=== PATIENT | female | born 1950 | race Caucasian/White ===

== ENCOUNTER 2016-12-02 09:10 | Day surgery (SDC) | payer MEDICARE, OTHER ==
--- NOTE | ~2016-12-02 | EGD ---
EGD REPORT [facility] [address] [place]. [address] NAME: ARTURO ESQUIVEL JANUARY : [birth year] STATUS : REG [facility] PAT#: [id number] AGE: 66 ADM/REG DATE : 12/02/16 MR#: [id number] REPORT SERV DATE: 12/02/16 DICTATED BY: GABRIELA MARTINEZ DATE: 12/02/16 REPORT STATUS : Draft TRANSCRIBED BY: [facility] DATE: 12/02/16 Endoscopy Center Patient Name: Arturo Esquivel January Date of : 1950 Attending MD: GABRIELA MARTINEZ MD Procedure Date No Time: 12/02/2016 Procedure: Colonoscopy Indications: This is the patient's first colonoscopy, Heme positive stool, Iron deficiency anemia Referring MD: LUBNA EDMOND Medicines: See the Anesthesia note for documentation of the administered medications Complications: No immediate complications. Procedure: Pre-Anesthesia Assessment: - ASA Grade Assessment: IV - A patient with severe systemic disease that is a constant threat to life. After I obtained informed consent, the scope was passed under direct vision. Throughout the procedure, the patient's blood pressure, pulse, and oxygen saturations were monitored continuously. The PCF H190L [id number] was introduced through the anus and advanced to the terminal ileum, with identification of the appendiceal orifice and IC valve. The colonoscopy was performed without difficulty. The patient tolerated the procedure well. The quality of the bowel preparation was adequate. Findings: The perianal and digital rectal examinations were normal. Diverticula were found in the ascending colon. Internal hemorrhoids were found during retroflexion and were small. Two sessile polyps were found in the descending colon. The polyps were 10 mm in size. These polyps were removed with a hot snare. Resection and retrieval were complete. Two sessile polyps were found in the ascending colon. The polyps were 10 mm in size. These polyps were removed with a hot snare. Resection and retrieval were complete. A sessile polyp was found in the ascending colon. The polyp was small in size. The polyp was removed with a cold biopsy forceps. Resection was complete, but the polyp tissue was not retrieved. Impression: - Diverticulosis in the ascending colon. - Internal hemorrhoids. - Two 10 mm polyps in the descending colon. Resected and retrieved. - Two 10 mm polyps in the ascending colon. Resected and EGD REPORT [place] [id number] [facility] [place]. [address] NAME: ARTURO ESQUIVEL JANUARY : [birth year] STATUS : REG [facility]#: [id number] AGE: 66 ADM/REG DATE : 12/02/16 MR#: [id number] REPORT SERV DATE: 12/02/16 DICTATED BY: GABRIELA MARTINEZ DATE: 12/02/16 REPORT STATUS : Draft TRANSCRIBED BY: [facility] DATE: 12/02/16 retrieved. - One small polyp in the ascending colon. Complete resection. Polyp tissue not retrieved. Recommendation: - Patient has a contact number available for emergencies. The signs and symptoms of potential delayed complications were discussed with the patient. Return to normal activities tomorrow. Written discharge instructions were provided to the patient. - Regular diet. - Continue present medications. - FOR YOUR BIOPSY RESULTS: Please go to [email or web address] and register to receive your results via the portal. Your biopsy results will be posted there in about 7 to 10 days. IF you do not see result in 10 days, call office. - Office visit in 2 weeks with Nurse Practitioner Then consider small bowel capsule Procedure Code(s): --- Professional --- 80514, Colonoscopy, flexible, proximal to splenic flexure; with removal of tumor(s), polyp(s), or other lesion(s) by snare technique 15186, 59, Colonoscopy, flexible, proximal to splenic flexure; with biopsy, single or multiple Diagnosis Code(s): --- Professional --- K64.8, Other hemorrhoids K57.30, Diverticulosis of large intestine without perforation or abscess without bleeding D12.2, Benign neoplasm of ascending colon D12.4, Benign neoplasm of descending colon R19.5, Other fecal abnormalities D50.9, Iron deficiency anemia, unspecified CPT copyright 2013 [employer]. All rights reserved. The codes documented in this report are preliminary and upon final inspector balance wheel review may be revised to meet current compliance requirements. Gabriela Martinez MD GABRIELA MARTINEZ MD 12/02/2016 10:58 AM This report has been signed electronically. Number of Addenda: 0 EGD REPORT [facility] [address] [facility] [place] [address] NAME: ARTURO ESQUIVEL JANUARY : [birth year] STATUS : REG [facility] [place] [place] PAT#: [id number] AGE: 66 ADM/REG DATE : 12/02/16 MR#: [id number] REPORT SERV DATE: 12/02/16 DICTATED BY: GABRIELA MARTINEZ DATE: 12/02/16 REPORT STATUS : Draft TRANSCRIBED BY: [employer] DATE: 12/02/16 Note Initiated On: 12/02/2016 9:49 AM Scope Withdrawal Time 0 hours 10 minutes 51 seconds [address] [place] [address]
--- NOTE | ~2016-12-02 | EGD ---
EGD REPORT [facility] [address] [place] [address] NAME: ARTURO ESQUIVEL JANUARY : [birth year] STATUS : [place] [facility] [place]#: [id number] AGE: 66 ADM/REG DATE : 12/02/16 MR#: [id number] REPORT SERV DATE: 12/02/16 DICTATED BY: GABRIELA MARTINEZ DATE: 12/02/16 REPORT STATUS : Draft TRANSCRIBED BY: [facility] DATE: 12/02/16 Endoscopy Center Patient Name: Arturo Esquivel January Date of : 1950 Attending MD: GABRIELA MARTINEZ MD Procedure Date No Time: 12/02/2016 Procedure: Upper GI endoscopy Indications: Epigastric abdominal pain, Iron deficiency anemia, Heme positive stool Referring MD: LUBNA EDMOND Medicines: See the Anesthesia note for documentation of the administered medications Complications: No immediate complications. Procedure: Pre-Anesthesia Assessment: - ASA Grade Assessment: IV - A patient with severe systemic disease that is a constant threat to life. After obtaining informed consent, the endoscope was passed under direct vision. Throughout the procedure, the patient's blood pressure, pulse, and oxygen saturations were monitored continuously. The GIF H190 [id number] was introduced through the mouth, and advanced to the second part of duodenum. The upper GI endoscopy was accomplished without difficulty. The patient tolerated the procedure well. Findings: The 2nd part of the duodenum was normal. Biopsies were taken with a cold forceps for histology. Mild inflammation was found in the gastric antrum. Biopsies were taken with a cold forceps for histology. The cardia and gastric fundus were normal on retroflexion. A small hiatus hernia was present. Impression: - Normal 2nd part of the duodenum. Biopsied. - Gastritis. Biopsied. - Hiatus hernia. Recommendation: - Patient has a contact number available for emergencies. The signs and symptoms of potential delayed complications were discussed with the patient. Return to normal activities tomorrow. Written discharge instructions were provided to the patient. - Regular diet. - Continue present medications. - FOR YOUR BIOPSY RESULTS: Please go to EGD REPORT [address] [address] NAME: ARTURO ESQUIVEL JANUARY : [birth year] STATUS : REG [facility]#: [id number] AGE: 66 ADM/REG DATE : 12/02/16 MR#: [id number] REPORT SERV DATE: 12/02/16 DICTATED BY: GABRIELA MARTINEZ DATE: 12/02/16 REPORT STATUS : Draft TRANSCRIBED BY: [employer] DATE: 12/02/16 [email or web address] and register to receive your results via the portal. Your biopsy results will be posted there in about 7 to 10 days. IF you do not see result in 10 days, call office. Procedure Code(s): --- Professional --- 95612, Esophagogastroduodenoscopy, flexible, transoral; with biopsy, single or multiple Diagnosis Code(s): --- Professional --- K29.70, Gastritis, unspecified, without bleeding K44.9, Diaphragmatic hernia without obstruction or gangrene R10.13, Epigastric pain D50.9, Iron deficiency anemia, unspecified R19.5, Other fecal abnormalities CPT copyright 2013 [employer]. All rights reserved. The codes documented in this report are preliminary and upon canceling machine operator review may be revised to meet current compliance requirements. Gabriela Martinez MD GABRIELA MARTINEZ MD 12/02/2016 10:25 AM This report has been signed electronically. Number of Addenda: 0 Note Initiated On: 12/02/2016 10:12 AM Scope Withdrawal Time 0 hours 0 minutes 0 seconds [address] [place] [address]
[~2016-12-02 09:10] MED LIST: ACET500CAP PO; ALBUTEROL5 INH; AMIT100 PO; AMIT50 PO; ANOROELLIPTA INH; ARMOUR THYRO15 MG PO; ARMOUR THYRO30 MG PO; ARMOUR THYRO60 MG PO; ARMOUR THYROID; ASA5GR PO; ASAB PO; ATACAND32 MG PO; ATROVENTUD INH; BL FLAX SEED1000 MG PO; BREO ELLIPTA 21 EACH INH; BREO ELLIPTA INH; COLCRYS0.6 MG PO; COMBIVENT RESPIM4 GM INH; DEMA100 PO; DOLOPHINE10 MG PO; DOLOPHINE5 MG PO; DRISDOL50000 UNT PO; DUONEB INH; ESTRACE VAG0.1 MG/GM V; FERRETTS325 MG PO; FERROUS SULF325 M1 PO; FERROUS SULFATE; FERROUS SULFATE PO; FLAGIV500 PO; FLAXSEED OIL1000 MG PO; FLONASE NAS; FLORASTOR250 MG PO; HALF81 PO; HUMALOG; HUMALOG R IM/SC; HUMALOG SC; HUMULIN R U-500 SC; HUMULIN R1 ML SC; HUMULIN-R U-500 SC; HUMULIN500CONC SC; INCRUSE ELLI62.5 MCG INH; INCRUSE ELLIPTA INH; IRON325 MG PO; KDUR20 PO; KLOR-CON M1010 MEQ PO; KLOR-CON M2020 MEQ PO; LANTUS SC; LANTUSCART SC; LEVAQUIN5T PO; LEVAQUIN750 MG PO; LEVEMIR SC; LOFIBRA134 MG PO; LOP25 PO; LOTE20 PO; MEDROLPAK4 PO; METHATAB10 PO; MIRALAXPKT PO; MULTIPLE VIT PO; NAC 600 PO; NEUR300 PO; NEUR600 PO; NORV5 PO; NOVOLOG SC; NYS500UDL PO; OXYCONTIN15 MG PO; P10 PO; P20 PO; PERCOCET1 TA4 PO; PHOSLO PO; PR25 PO; PRAV10 PO; PRAVAC PO; PRESERVISION A1 EACH PO; PRILO PO; PRILOSEC40 MG PO; PROAIR HFA INH; PROCRIT INJECTION IM/SC; PROCRIT SC; PROVENTSOL INH; REG5 PO; ROXICODONE15 MG PO; SOMATAB PO; SPIRIVA INH; SPIRO25 PO; STOOL SOFTENER PO; STOOL SOFTNER PO; SYN.05 PO; THY30 PO; TORSEMIDE PO; VANCO1P IV; VITAMIN D31000 UNIT PO; VITD PO; WESTHROID PO; X25 PO; X5 PO; Z-PAK PO; Z10 PO; Z100 PO; ZEGERID1 CA1 PO; ZOCOR40 PO; ZOCOR80 MG PO; ZOFRAN4 PO; ZYVOXPO PO
[2017-04-13] MEDS ORDERED: ROXICODONE15 MG PO (19:31)
[2017-04-13] MEDS ORDERED: CIP2 PO (19:32)
[2017-04-13] MEDS ORDERED: PRILOSEC40 MG PO (19:32)
[2017-04-13] MEDS ORDERED: CARTIA XT180 MG/24 PO (19:36)
[2017-04-13] MEDS ORDERED: INCRUSE ELLI62.5 MCG INH (19:37)
[2017-04-13] MEDS ORDERED: BREO ELLIPTA 21 EACH INH (19:37)
[2017-04-13] MEDS ORDERED: DEMA100 PO (19:37)
[2017-04-13] MEDS ORDERED: HUMALOG SC ×3 (19:38→19:39)
[2017-04-13] MEDS ORDERED: DUONEB INH (19:38)
[2017-04-13] MEDS ORDERED: SYN125 PO (19:38)
[2017-04-13] MEDS ORDERED: Z100 PO (19:39)
[2017-04-13] MEDS ORDERED: AMIT50 PO (19:39)
[2017-04-13] MEDS ORDERED: PRAVAC PO (19:40)
[2017-04-13] MEDS ORDERED: NEUR600 PO (19:40)
[2017-04-13] MEDS ORDERED: SPIRO25 PO (19:40)
[2017-04-13] MEDS ORDERED: COMBIVENT RESPIM4 GM INH (19:41)
[2017-04-13] MEDS ORDERED: VITD PO (19:41)
[2017-04-13] MEDS ORDERED: REG5 PO (19:42)
[2017-04-13] MEDS ORDERED: LANTUS SC (19:42)
[2017-04-13] MEDS ORDERED: ASAB PO (19:43)
[2017-04-13] MEDS ORDERED: MIRALAX POWDER1 PKT PO (19:43)
[2017-04-13] MEDS ORDERED: BL FLAX SEED1000 MG PO (19:43)
[2017-04-13] MEDS ORDERED: PROBIOTIC PO (19:44)
[2017-04-13] MEDS ORDERED: CO Q-10100 MG PO (19:44)
[2017-04-13] MEDS ORDERED: PRESERVISION A1 EAC1 PO (19:44)
[2017-04-13] MEDS ORDERED: ACET500CAP PO (19:45)
[2017-04-13] MEDS ORDERED: CRANBERRY EXTRACT PO (19:45)
[2017-04-13] MEDS ORDERED: PROCRIT INJECTION IM (19:46)
[2017-05-13] MEDS ORDERED: PLAVIX PO (19:29)
[2017-05-13] MEDS ORDERED: TOPAMAX25 PO (19:29)
[2017-05-13] MEDS ORDERED: CARTIA XT180 MG/24 PO (19:29)
[2017-05-13] MEDS ORDERED: CIP2 PO (19:29)
[2017-05-13] MEDS ORDERED: DUONEB INH ×2 (19:29→19:33)
[2017-05-13] MEDS ORDERED: CO Q-10100 MG PO (19:30)
[2017-05-13] MEDS ORDERED: CRANBERRY SUPPLEMENT PO (19:30)
[2017-05-13] MEDS ORDERED: FLAXSEED OIL1000 MG PO (19:31)
[2017-05-13] MEDS ORDERED: PROBIOTIC PO (19:31)
[2017-05-13] MEDS ORDERED: PRESERVISION A1 EAC1 PO (19:31)
[2017-05-13] MEDS ORDERED: ASAB PO (19:31)
[2017-05-13] MEDS ORDERED: MIRALAX POWDER1 PKT PO (19:31)
[2017-05-13] MEDS ORDERED: HUMALOG SC ×3 (19:32)
[2017-05-13] MEDS ORDERED: COMBIVENT RESPIM4 GM INH (19:33)
[2017-05-13] MEDS ORDERED: BREO ELLIPTA INH (19:33)
[2017-05-13] MEDS ORDERED: INCRUSE ELLI62.5 MCG INH (19:33)
[2017-05-13] MEDS ORDERED: LANTUS SC (19:33)
[2017-05-13] MEDS ORDERED: VITD PO (19:34)
[2017-05-13] MEDS ORDERED: PRILOSEC40 MG PO (19:34)
[2017-05-13] MEDS ORDERED: PRAVAC PO (19:34)
[2017-05-13] MEDS ORDERED: SPIRO25 PO (19:34)
[2017-05-13] MEDS ORDERED: DEMA100 PO (19:35)
[2017-05-13] MEDS ORDERED: SYN125 PO (19:35)
[2017-05-13] MEDS ORDERED: NEUR600 PO (19:35)
[2017-05-13] MEDS ORDERED: AMIT50 PO (19:35)
[2017-05-13] MEDS ORDERED: REG5 PO (19:35)
[2017-05-13] MEDS ORDERED: Z100 PO (19:36)
[2017-05-13] MEDS ORDERED: ROXICODONE15 MG PO (19:36)
[2017-05-16] MEDS ORDERED: LEVAQUIN750 MG PO (09:43)
== END 2016-12-02 23:59 | disposition home or self-care (01) ==
LOC: DMU 09:10
PROVIDERS: Internal Medicine Gastroenterology
PROC: 0DBK8ZZ Excision of Ascending Colon, Via Natural or Artificial Opening Endoscopic (ICD-10-PCS; 2016-12-02)
PROC: 0DB98ZX Excision of Duodenum, Via Natural or Artificial Opening Endoscopic, Diagnostic (ICD-10-PCS; principal; 2016-12-02 11:00)
PROC: 0DB68ZX Excision of Stomach, Via Natural or Artificial Opening Endoscopic, Diagnostic (ICD-10-PCS; 2016-12-02 11:00)
PROC: 0DBM8ZZ Excision of Descending Colon, Via Natural or Artificial Opening Endoscopic (ICD-10-PCS; 2016-12-02 11:00)
DX: K29.50 Unspecified chronic gastritis without bleeding (principal); D12.4 Benign neoplasm of descending colon; D12.2 Benign neoplasm of ascending colon; K44.9 Diaphragmatic hernia without obstruction or gangrene; R10.13 Epigastric pain; D50.9 Iron deficiency anemia, unspecified; R19.5 Other fecal abnormalities; K64.8 Other hemorrhoids; K57.30 Diverticulosis of large intestine without perforation or abscess without bleeding; E03.9 Hypothyroidism, unspecified; I63.9 Cerebral infarction, unspecified; J44.9 Chronic obstructive pulmonary disease, unspecified; G47.33 Obstructive sleep apnea (adult) (pediatric); E11.22 Type 2 diabetes mellitus with diabetic chronic kidney disease; I12.9 Hypertensive chronic kidney disease with stage 1 through stage 4 chronic kidney disease, or unspecified chronic kidney disease; N18.9 Chronic kidney disease, unspecified; Z95.5 Presence of coronary angioplasty implant and graft; Z99.81 Dependence on supplemental oxygen; Z88.2 Allergy status to sulfonamides; Z79.899 Other long term (current) drug therapy; Z79.4 Long term (current) use of insulin; Z79.891 Long term (current) use of opiate analgesic; Z79.82 Long term (current) use of aspirin; Z79.51 Long term (current) use of inhaled steroids
CPT/HCPCS: 82962; 88305; 94640

== ENCOUNTER 2017-02-18 23:50 | Inpatient (IN) | payer MEDICARE, OTHER ==
--- NOTE | ~2017-02-18 | DS ---
Discharge Summary [facility] [address] [place]. [address] NAME: ARTURO ESQUIVEL JANUARY : [birth year] STATUS : DIS IN PAT#: [id number] AGE: 66 ADM/REG DATE : 02/19/17 MR#: [id number] REPORT SERV DATE: 02/24/17 DICTATED BY: ALVARO DELACRUZ DATE: 02/23/17 REPORT STATUS : Draft TRANSCRIBED BY: MODL DATE: 02/23/17 ADMISSION DATE: 02/19/2017 DISCHARGE DATE: 02/23/2017 DISCHARGE DIAGNOSES: 1. Acute kidney injury. 2. Hyperkalemia. 3. Hypertension. 4. Chronic pancytopenia with stable splenomegaly. 5. Diabetes mellitus type 2 with A1c 5.5% and peripheral neuropathy. 6. Obstructive sleep apnea, not compliant with home CPAP. 7. Hypothyroidism. 8. History of gout. 9. History of coronary disease with previous heart attack and percutaneous coronary intervention. 10.Old stroke. 11.Chronic iron-deficiency anemia and anemia of chronic disease. 12.Oxygen-dependent chronic obstructive pulmonary disease. 13.History of colon polyps. 14.Chronic constipation. 15.Chronic back pain and peripheral neuropathy for which she is on chronic opiate therapy. HISTORY: This patient has had recent sore throat; nasal congestion; occasional epistaxis; recent UTI, treated with Cipro; and then diarrhea that was quite significant which is unusual for her. She normally has just constipation. She had then three or four days of new diarrhea. She came to the emergency room at [facility] where she was found to have acute kidney injury with BUN of 159, creatinine 2.12. She was referred to our team for inpatient care. Stool studies were ordered, but she had no further diarrhea. A throat strep screen was negative and throat culture revealed normal kar. The patient's Lotensin was stopped, also her spironolactone and Demodex were stopped, and the patient's creatinine came back to normal and at discharge 0.87. Her BUN at discharge is 44 which is close to her baseline. Her potassium was transiently elevated up to a peak of 6.2; by discharge, it was 4.6. The patient has chronic thrombocytopenia as part of her pancytopenia that goes back for years. She has chronic stable splenomegaly and had a CT scan of the abdomen and pelvis on admission in the emergency room which documented the stable splenomegaly, also documented stable chest mediastinal adenopathy. She is felt by rehab and her physicians to need inpatient therapy, those arrangements have been made at [facility] [place], the patient is being discharged there. For her blood pressure, we have used Norvasc, and we will give her MiraLAX p.r.n. We will ask the facility to follow up on a BMP twice a week, and longitudinally, she should follow up with Discharge Summary [address] [address] NAME: ARTURO ESQUIVEL JANUARY : [birth year] STATUS : DIS IN PAT#: [id number] AGE: 66 ADM/REG DATE : 02/19/17 MR#: [id number] REPORT SERV DATE: 02/24/17 DICTATED BY: ALVARO DELACRUZ DATE: 02/23/17 REPORT STATUS : Draft TRANSCRIBED BY: BRIAN DATE: 02/23/17 her PCP, Dr. Blade Caballero, and with her GI, Dr. Martinez, and especially also with Dr. Cobb of Nephrology. DISCHARGE MEDICATIONS: Allopurinol 100 mg daily; amitriptyline 50 mg at bedtime; Norvasc 10 mg daily; aspirin 81 mg daily; coenzyme Q 300 mg daily; Colace 100 mg daily; vitamin D 50,000 units every two weeks; gabapentin 600 mg t.i.d., which is a chronic medicine; Lantus 35 units at bedtime, plus she takes NovoLog 30 units with breakfast and supper and 25 units with lunch and a level 2 sliding scale before meals and at bedtime; Synthroid 125 mcg daily (TSH 0.272); Reglan 5 mg with lunch and supper which is chronic for her; omeprazole 40 mg daily; Pravachol 20 mg daily, Florastor capsule twice a day for three weeks, because she did recently have Cipro and she recently here in the hospital got some doxycycline; Atrovent nebulized q.i.d. p.r.n. shortness of breath; albuterol nebulized q.i.d. p.r.n. shortness of breath; Incruse Ellipta 62.5 one puff inhaled daily; Roxicodone 15 mg q.i.d. which is chronic for her, and I wrote a new prescription for 25 to go with her to the rehab; Tylenol 650 q.6 hours p.r.n. mild pain; glucose tablets p.r.n. hypoglycemia; Zofran ODT 4 mg q.4 hours p.r.n. nausea; MiraLAX powder scheduled dose 17 g daily; Breo Ellipta 200/25 a puff every morning; flaxseed 1000 mcg t.i.d.; PreserVision AREDS two capsule twice a day; cranberry extract twice a day. 60 minutes with the patient today. DICTATED BY: Alvaro Delacruz M.D. RSG/MODL Alvaro Delacruz M.D. / [id number] CC: Yohannes Sorto M.D. Mandeep Grewal, M.D. [facility]. Ember Martinez M.D.
--- NOTE | ~2017-02-18 | HP ---
History And Physical [address] [address] NAME: ARTURO ESQUIVEL JANUARY : [birth year] STATUS : ADM IN [facility]#: [id number] AGE: 66 ADM/REG DATE : 02/19/17 MR#: [id number] REPORT SERV DATE: 02/19/17 DICTATED BY: NADIA JIANG DATE: 02/19/17 REPORT STATUS : Draft TRANSCRIBED BY: MODL DATE: 02/19/17 DATE OF ADMISSION: 02/19/2017 CHIEF COMPLAINT: A 66-year-old female presenting with sore throat, sinus drainage, diarrhea, and evidence of acute renal failure with a BUN of 159. HISTORY OF PRESENTING ILLNESS: The patient's history was obtained through careful interview with the patient and , coupled with review of [facility] and [employer] medical records. For about four days now, the patient has had severe sore throat and difficulty swallowing because of it. She states that her throat feels "like fire." She also has a complaint of having significant sinus drainage, epistaxis at times, and feeling "stopped up" in her sinuses, but with no headache. She describes chronic back pain about 8 to 9 out of 10 severity. She has had a urinary tract infection about two weeks ago, was placed on a 10-day course of Cipro that was completed on 02/16/2017. For about three or four days now, she has developed new-onset diarrhea, loose stools about three times a day. She claims her diabetes is under control. She has no shortness of breath at this time. No chest pain, but has slight worsening of her chronic cough. No nausea or vomiting. No change in urine habit. REVIEW OF SYSTEMS: Otherwise, a 14-point review of systems was obtained and was negative. PAST MEDICAL HISTORY: 1. Diabetes. 2. Stroke. 3. Pneumonia. 4. COPD, oxygen dependent. 5. Obstructive sleep apnea, on CPAP. 6. Chronic kidney disease stage 3. Baseline creatinine of 1.5. 7. Gastroesophageal reflux disorder. 8. Pain management. 9. Neuropathy. 10.Hypothyroidism. 11.Thrombocytopenia. 12.Gout. 13.MRSA. 14.Nephrolithiasis. 15.Colon polyps, seen by Dr. Martinez. 16.Splenomegaly. History And Physical [address] [address] NAME: ARTURO ESQUIVEL : [birth year] STATUS : ADM IN PAT#: [id number] AGE: 66 ADM/REG DATE : 02/19/17 MR#: [id number] REPORT SERV DATE: 02/19/17 DICTATED BY: NADIA JIANG DATE: 02/19/17 REPORT STATUS : Draft TRANSCRIBED BY: BRIAN DATE: 02/19/17 17.Coronary artery disease, status post stent placement. 18.Peptic ulcer disease. PAST SURGICAL HISTORY: 1. Hysterectomy with oophorectomy. 2. Cholecystectomy. 3. Appendectomy. 4. Lumbar spine surgery. 5. Right leg fracture repair. ALLERGIES: SULFA. SOCIAL HISTORY: Quit smoking in 2010. Has been to her for 45 years. No alcohol use. Has three children. Lives in [place], [place]. FAMILY HISTORY: Coronary artery disease, diabetes, and stroke. CURRENT MEDICATIONS: Include albuterol inhaler, allopurinol 100 mg p.o. daily, Elavil 50 mg p.o. q.h.s., aspirin 81 mg p.o. daily, benazepril 20 mg p.o. daily, Cipro completed on 02/16/2017, coenzyme Q10, vitamin D, flaxseed, Breo Ellipta inhaled every morning, Neurontin 600 mg p.o. t.i.d., Lantus 38 units subcutaneous at bedtime, Humalog 40 units before breakfast and supper and 27 units before lunch, sliding scale insulin, Atrovent, Combivent, Synthroid 125 mcg p.o. daily, Reglan 5 mg before lunch and supper, Prilosec 40 mg p.o. daily, Roxicodone 15 mg p.o. four times a day, MiraLAX packet daily, Pravachol 20 mg p.o. daily, Aldactone 25 mg p.o. daily, Demadex 50 mg p.o. daily, Incruse Ellipta inhaled every morning, probiotics, cranberry extract, and multivitamin. PHYSICAL EXAMINATION: VITAL SIGNS: Temperature 96.6, pulse 86, blood pressure 144/66, respiratory rate 22, O2 saturation 94% on room air. GENERAL: A chronically ill-appearing female, not in any particular distress at this time. HEENT: Pupils equal, round, and reactive to light. No conjunctival pallor. No scleral icterus. Nares are patent. Oropharynx is clear of obstruction. Moist mucous membranes. NECK: Trachea midline. No thyromegaly. LYMPH: No cervical lymphadenopathy. No supraclavicular lymphadenopathy. RESPIRATORY: Scattered rhonchi on examination and expiratory wheeze with prolonged expiratory phase. Mildly labored respiratory effort. No rales. No focal egophony. CARDIOVASCULAR: Regular rate and rhythm. No murmurs, rubs, or gallops. No extremity edema is appreciated. ABDOMEN: Soft, nontender, nondistended. Normal bowel sounds auscultated throughout. No hepatosplenomegaly. DERMATOLOGICAL: Warm and dry. EXTREMITIES: No pallor, no cyanosis. PSYCHIATRIC: Normal affect. Good mood. Alert and oriented x3. LABORATORY DATA: White blood cell count 5, hemoglobin 11, hematocrit 34.5, platelets 75. History And Physical [address] [address] NAME: ARTURO ESQUIVEL JANUARY : [birth year] STATUS : ADM IN [facility]#: [id number] AGE: 66 ADM/REG DATE : 02/19/17 MR#: [id number] REPORT SERV DATE: 02/19/17 DICTATED BY: NADIA JIANG DATE: 02/19/17 REPORT STATUS : Draft TRANSCRIBED BY: BRIAN DATE: 02/19/17 Sodium 134, potassium 5.2, chloride 98, bicarb 29, BUN 159, creatinine 2.12, glucose 217. Troponin negative. INR 1.2. Urinalysis negative for infection. STUDIES: 1. Chest x-ray by my own evaluation seems to show chronic interstitial lung disease, generally stable compared to 09/2016. There is the possibility of a right infiltrate? versus chronic disease? 2. EKG by my own evaluation shows sinus rhythm. ASSESSMENT AND PLAN: 1. Acute renal failure with uremia. A BUN of 159. Place on IV fluids. Hold diuretics. Check CT scan of the abdomen and pelvis. 2. Diarrhea. Check C diff toxin. Recent antibiotic use has been noted. 3. Sore throat. Check strep. Question whether this is from sinus drainage alone. 4. Bronchitis. Place on Duo nebulizers and doxycycline. Check a CT scan of the chest. 5. Obstructive sleep apnea. Place on CPAP. 6. Diabetes. Check hemoglobin A1c. Place on sliding scale insulin. KPL/MODL Nadia Jiang M.D. / [id number] CC: MD Blade Jean M.D.
[2017-02-18 21:57] LABS: ALBUMIN 3.7 G/DL (3.5-5.0); ALKALINE PHOSPHATASE 97 U/L (45-117); CALCIUM, SERUM 8.9 MG/DL (8.5-10.4); CHLORIDE, SERUM 101 MMOL/L (96-112); CO2 (CARBON DIOXIDE) 26 MMOL/L (24-34); POTASSIUM, SERUM 5.3 MMOL/L (3.5-5.3); SGOT(AST) 23 U/L (5-40); SGPT(ALT) 23 U/L (5-65); SODIUM, SERUM 135 MMOL/L (135-148); TOTAL BILIRUBIN 0.5 MG/DL (0-1.2); TOTAL PROTEIN 7.2 G/DL (6.0-8.5)
[2017-02-18 22:22] LABS: A/G RATIO 1.1 (0.7-1.9); BUN (BLOOD UREA NITROGEN) 171 MG/DL (6-23); CREATININE 2.41 MG/DL (0.55-1.02); GFR AFRICAN AMERICAN 24 ML/MIN (>=60); GFR NON AFRICAN AMERICAN 20 ML/MIN (>=60); GLOBULIN 3.5 G/DL (2.5-4.1); GLUCOSE, SERUM 68 MG/DL (60-99); ULTRASENSITIVE TSH 0.406 MCIU/ML (0.358-3.740)
[2017-02-19] MEDS ORDERED: NEUR600 PO (01:22)
[2017-02-19] MEDS ORDERED: AMIT50 PO (01:22)
[2017-02-19] MEDS ORDERED: ROXICODONE15 MG PO (01:22)
[2017-02-19] MEDS ORDERED: Z100 PO (01:22)
[2017-02-19] MEDS ORDERED: CIP2 PO (01:22)
[2017-02-19] MEDS ORDERED: REG5 PO (01:23)
[2017-02-19] MEDS ORDERED: DEMA100 PO (01:23)
[2017-02-19] MEDS ORDERED: VITD PO (01:24)
[2017-02-19] MEDS ORDERED: PRAVAC PO (01:24)
[2017-02-19] MEDS ORDERED: SYN125 PO (01:24)
[2017-02-19] MEDS ORDERED: SPIRO25 PO (01:24)
[2017-02-19] MEDS ORDERED: PRILOSEC40 MG PO (01:25)
[2017-02-19] MEDS ORDERED: LOTE20 PO (01:25)
[2017-02-19] MEDS ORDERED: ALBUTEROL0.083 % INH (01:26)
[2017-02-19] MEDS ORDERED: ATROVENTUD INH (01:26)
[2017-02-19] MEDS ORDERED: COMBIVENT RESPIM4 GM INH (01:27)
[2017-02-19] MEDS ORDERED: HUMALOG SC ×3 (01:27→01:29)
[2017-02-19] MEDS ORDERED: INCRUSE ELLI62.5 MCG INH (01:27)
[2017-02-19] MEDS ORDERED: BREO ELLIPTA 21 EACH INH (01:27)
[2017-02-19] MEDS ORDERED: LANTUS SC (01:28)
[2017-02-19] MEDS ORDERED: SM FLAX SEED1000 MG PO (01:30)
[2017-02-19] MEDS ORDERED: ASAB PO (01:30)
[2017-02-19] MEDS ORDERED: MIRALAX POWDER1 PKT PO (01:30)
[2017-02-19] MEDS ORDERED: PRESERVISION A1 EAC1 PO (01:31)
[2017-02-19] MEDS ORDERED: [UNRECOGNIZED DRUG - OTHER] PO (01:32)
[2017-02-19] MEDS ORDERED: CO Q-10100 MG PO (01:35)
[2017-02-19] MEDS ORDERED: CRANBERRY 4200 MG PO (01:36)
[2017-02-19 01:39] LABS: BASOPHILS 0.2 %; BASOPHILS ABSOLUTE 0.01 10/3/uL (0.0-0.16); EOSINOPHILS 3.2 %; EOSINOPHILS ABSOLUTE 0.16 10/3/uL (0.0-0.53); ER CBC TAT 0 Hrs 08 Mins; HEMATOCRIT 34.5 % (36.0-48.0); HEMOGLOBIN 10.8 g/dL (12.0-16.0); IMMATURE GRANULOCYTES 0.4 %; IMMATURE GRANULOCYTES ABSOLUTE 0.02 10/3/uL (0.0-0.11); LYMPHOCYTES 18.9 %; LYMPHOCYTES ABSOLUTE 0.95 10/3/uL (0.67-4.30); MEAN CORPUS HGB CONC 31.3 g/dL (32.0-36.0); MEAN CORPUSCULAR HEMOGLOB 28.6 pg (26.0-34.0); MEAN CORPUSCULAR VOLUME 91.3 fL (80-100); MONOCYTES 9.1 %; MONOCYTES ABSOLUTE 0.46 10/3/uL (0.21-1.20); NEUTROPHILS 68.2 %; NEUTROPHILS ABSOLUTE 3.43 10/3/uL (2.02-8.40); PLATELET COUNT 75 10/3/uL (150-400); RBC DISTRIBUTION WIDTH 17.1 % (12.0-16.0); RED CELL COUNT 3.78 10/6/uL (4.0-5.6)
[2017-02-19 01:40] LABS: MANUAL DIFF NO %
[2017-02-19 01:52] LABS: PLATELET ESTIMATE DEC (ADEQUATE); RBC MORPHOLOGY NORM (NORMAL)
[2017-02-19 02:30] LABS: INTERNATIONAL NORMAL RATI 1.2 UNITS (-); PARTIAL THROMBO TIME 33.9 SEC (22.5-37.2); PROTIME (NOT ORD) 14.7 SEC (12.0-14.5)
[2017-02-19 02:40] LABS: A/G RATIO 0.8 (0.7-1.9); ALBUMIN 3.3 G/DL (3.5-5.0); ALKALINE PHOSPHATASE 91 U/L (45-117); CHLORIDE, SERUM 98 MMOL/L (96-112); CO2 (CARBON DIOXIDE) 29 MMOL/L (24-34); CREATININE 2.12 MG/DL (0.55-1.02); GFR AFRICAN AMERICAN 28 ML/MIN (>=60); GFR NON AFRICAN AMERICAN 24 ML/MIN (>=60); GLOBULIN 4.1 G/DL (2.5-4.1); POTASSIUM, SERUM 5.2 MMOL/L (3.5-5.3); SGOT(AST) 24 U/L (5-40); SGPT(ALT) 23 U/L (5-65); SODIUM, SERUM 134 MMOL/L (135-148); TOTAL BILIRUBIN 0.4 MG/DL (0-1.2); TOTAL PROTEIN 7.4 G/DL (6.0-8.5); TROPONIN I <0.02 NG/ML (<0.05)
[2017-02-19 02:57] LABS: BUN (BLOOD UREA NITROGEN) 159 MG/DL (6-23); GLUCOSE, SERUM 217 MG/DL (60-99)
[2017-02-19 03:03] LABS: ASCORBIC ACID (UR NOT ORDER) 20 (NEG); BILIRUBIN, URINE NEGATIVE (NEG); ER URINALYSIS TAT 0 Hrs 00 Mins; KETONE, URINE NEGATIVE (NEG); NITRITE (URINE) NEG (NEG); WBC (NOT ORDERED) (RFLEX) 3 (0-5)
[2017-02-19 03:04] LABS: LEUKOCYTE ESTERASE(NOT OR TRACE (NEG)
[2017-02-19 08:49] LABS: BASOPHILS 0.2 %; BASOPHILS ABSOLUTE 0.01 10/3/uL (0.0-0.16); EOSINOPHILS 2.6 %; EOSINOPHILS ABSOLUTE 0.13 10/3/uL (0.0-0.53); IMMATURE GRANULOCYTES 0.4 %; IMMATURE GRANULOCYTES ABSOLUTE 0.02 10/3/uL (0.0-0.11); LYMPHOCYTES 19.8 %; MEAN CORPUS HGB CONC 31.1 g/dL (32.0-36.0); MEAN CORPUSCULAR HEMOGLOB 28.1 pg (26.0-34.0); MEAN CORPUSCULAR VOLUME 90.4 fL (80-100); MONOCYTES 12.1 %; MONOCYTES ABSOLUTE 0.61 10/3/uL (0.21-1.20); NEUTROPHILS 64.9 %; NEUTROPHILS ABSOLUTE 3.29 10/3/uL (2.02-8.40); PLATELET COUNT 64 10/3/uL (150-400); RBC DISTRIBUTION WIDTH 17.1 % (12.0-16.0); RED CELL COUNT 4.27 10/6/uL (4.0-5.6); WHITE BLOOD CELLS 5.1 10/3/uL (4.5-10.5)
[2017-02-19 08:50] LABS: HEMATOCRIT 38.6 % (36.0-48.0); MANUAL DIFF NO %
[2017-02-19 08:57] LABS: INTERNATIONAL NORMAL RATI 1.2 UNITS (-); PARTIAL THROMBO TIME 29.9 SEC (22.5-37.2); PROTIME (NOT ORD) 15.1 SEC (12.0-14.5)
[2017-02-19 09:07] LABS: A/G RATIO 0.9 (0.7-1.9); ALBUMIN 3.6 G/DL (3.5-5.0); ALKALINE PHOSPHATASE 99 U/L (45-117); CHLORIDE, SERUM 101 MMOL/L (96-112); CO2 (CARBON DIOXIDE) 28 MMOL/L (24-34); GFR AFRICAN AMERICAN 36 ML/MIN (>=60); GFR NON AFRICAN AMERICAN 31 ML/MIN (>=60); GLOBULIN 3.8 G/DL (2.5-4.1); GLUCOSE, SERUM 194 MG/DL (60-99); POTASSIUM, SERUM 4.8 MMOL/L (3.5-5.3); SGOT(AST) 22 U/L (5-40); SGPT(ALT) 22 U/L (5-65); SODIUM, SERUM 138 MMOL/L (135-148); TOTAL BILIRUBIN 0.5 MG/DL (0-1.2); TOTAL PROTEIN 7.4 G/DL (6.0-8.5)
[2017-02-19 09:08] LABS: ULTRASENSITIVE TSH 0.272 MCIU/ML (0.358-3.740)
[2017-02-19 09:10] LABS: BUN (BLOOD UREA NITROGEN) 150 MG/DL (6-23)
[2017-02-19 09:47] LABS: ANISOCYTOSIS 1+ (5-10/OIF) (0-5/OIF); MACROCYTES 1+ (5-10/OIF) (0-5/OIF); PLATELET ESTIMATE DEC (ADEQUATE)
[2017-02-20 05:37] LABS: BASOPHILS 0.3 %; BASOPHILS ABSOLUTE 0.01 10/3/uL (0.0-0.16); EOSINOPHILS 1.7 %; EOSINOPHILS ABSOLUTE 0.06 10/3/uL (0.0-0.53); HEMOGLOBIN 10.2 g/dL (12.0-16.0); IMMATURE GRANULOCYTES 0.3 %; IMMATURE GRANULOCYTES ABSOLUTE 0.01 10/3/uL (0.0-0.11); LYMPHOCYTES 22.4 %; LYMPHOCYTES ABSOLUTE 0.81 10/3/uL (0.67-4.30); MEAN CORPUS HGB CONC 30.3 g/dL (32.0-36.0); MEAN CORPUSCULAR HEMOGLOB 28.3 pg (26.0-34.0); MONOCYTES 7.2 %; MONOCYTES ABSOLUTE 0.26 10/3/uL (0.21-1.20); NEUTROPHILS 68.1 %; NEUTROPHILS ABSOLUTE 2.47 10/3/uL (2.02-8.40); PLATELET COUNT 60 10/3/uL (150-400); RED CELL COUNT 3.61 10/6/uL (4.0-5.6); WHITE BLOOD CELLS 3.6 10/3/uL (4.5-10.5)
[2017-02-20 05:38] LABS: HEMATOCRIT 33.7 % (36.0-48.0); MANUAL DIFF NO %; MEAN CORPUSCULAR VOLUME 93.4 fL (80-100)
[2017-02-20 05:50] LABS: CALCIUM, SERUM 9.1 MG/DL (8.5-10.4); CHLORIDE, SERUM 109 MMOL/L (96-112); CO2 (CARBON DIOXIDE) 27 MMOL/L (24-34); CREATININE 1.23 MG/DL (0.55-1.02); FREE T4 1.35 NG/DL (0.76-1.46); GFR AFRICAN AMERICAN 53 ML/MIN (>=60); GFR NON AFRICAN AMERICAN 46 ML/MIN (>=60); GLUCOSE, SERUM 222 MG/DL (60-99); POTASSIUM, SERUM 5.1 MMOL/L (3.5-5.3); SODIUM, SERUM 142 MMOL/L (135-148)
[2017-02-20 05:53] LABS: BUN (BLOOD UREA NITROGEN) 107 MG/DL (6-23); CPK 44 U/L (0-200)
[2017-02-20 06:27] LABS: ANISOCYTOSIS 1+ (5-10/OIF) (0-5/OIF)
[2017-02-20 06:28] LABS: HELMET CELLS OCC (0-2/OIF); HYPOCHROMIA 1+ (3-10/OIF) (0-2/OIF); MACROCYTES 1+ (5-10/OIF) (0-5/OIF); PLATELET ESTIMATE DEC (ADEQUATE); POLYCHROMASIA 1+ (2-5/OIF) (0-1/OIF)
[2017-02-20 06:29] LABS: TEARDROP SHAPED RBCS OCC (0-2/OIF)
[2017-02-21 04:28] LABS: CALCIUM, SERUM 9.2 MG/DL (8.5-10.4); CHLORIDE, SERUM 109 MMOL/L (96-112); CO2 (CARBON DIOXIDE) 27 MMOL/L (24-34); CREATININE 1.28 MG/DL (0.55-1.02); GFR AFRICAN AMERICAN 51 ML/MIN (>=60); GFR NON AFRICAN AMERICAN 44 ML/MIN (>=60); SODIUM, SERUM 140 MMOL/L (135-148)
[2017-02-21 04:37] LABS: BUN (BLOOD UREA NITROGEN) 75 MG/DL (6-23); GLUCOSE, SERUM 274 MG/DL (60-99); POTASSIUM, SERUM 6.2 MMOL/L (3.5-5.3)
[2017-02-22 04:29] LABS: BASOPHILS 0.5 %; BASOPHILS ABSOLUTE 0.02 10/3/uL (0.0-0.16); EOSINOPHILS 2.4 %; HEMATOCRIT 36.3 % (36.0-48.0); HEMOGLOBIN 11.1 g/dL (12.0-16.0); IMMATURE GRANULOCYTES 0.5 %; IMMATURE GRANULOCYTES ABSOLUTE 0.02 10/3/uL (0.0-0.11); LYMPHOCYTES 21.8 %; LYMPHOCYTES ABSOLUTE 0.91 10/3/uL (0.67-4.30); MEAN CORPUS HGB CONC 30.6 g/dL (32.0-36.0); MEAN CORPUSCULAR HEMOGLOB 28.4 pg (26.0-34.0); MEAN CORPUSCULAR VOLUME 92.8 fL (80-100); MEAN PLATELET VOLUME 11.8 fL (9.2-13.0); MONOCYTES 9.1 %; MONOCYTES ABSOLUTE 0.38 10/3/uL (0.21-1.20); NEUTROPHILS 65.7 %; NEUTROPHILS ABSOLUTE 2.74 10/3/uL (2.02-8.40); PLATELET COUNT 78 10/3/uL (150-400); RBC DISTRIBUTION WIDTH 16.3 % (12.0-16.0); RED CELL COUNT 3.91 10/6/uL (4.0-5.6); WHITE BLOOD CELLS 4.2 10/3/uL (4.5-10.5)
[2017-02-22 04:30] LABS: MANUAL DIFF NO %
[2017-02-22 04:47] LABS: CALCIUM, SERUM 8.9 MG/DL (8.5-10.4); CHLORIDE, SERUM 112 MMOL/L (96-112); CO2 (CARBON DIOXIDE) 25 MMOL/L (24-34); CREATININE 1.07 MG/DL (0.55-1.02); GFR AFRICAN AMERICAN 63 ML/MIN (>=60); GFR NON AFRICAN AMERICAN 54 ML/MIN (>=60); SODIUM, SERUM 142 MMOL/L (135-148)
[2017-02-22 04:48] LABS: BUN (BLOOD UREA NITROGEN) 59 MG/DL (6-23); GLUCOSE, SERUM 157 MG/DL (60-99); POTASSIUM, SERUM 6.2 MMOL/L (3.5-5.3)
[2017-02-22 04:52] LABS: PLATELET ESTIMATE DEC (ADEQUATE); RBC MORPHOLOGY NORM (NORMAL)
[2017-02-22 07:34] LABS: CHLORIDE, SERUM 110 MMOL/L (96-112); CO2 (CARBON DIOXIDE) 26 MMOL/L (24-34); GFR AFRICAN AMERICAN 68 ML/MIN (>=60); GFR NON AFRICAN AMERICAN 59 ML/MIN (>=60); GLUCOSE, SERUM 154 MG/DL (60-99); POTASSIUM, SERUM 5.7 MMOL/L (3.5-5.3); SODIUM, SERUM 142 MMOL/L (135-148)
[2017-02-22 07:35] LABS: BUN (BLOOD UREA NITROGEN) 55 MG/DL (6-23)
[2017-02-23 05:49] LABS: BASOPHILS 0.3 %; BASOPHILS ABSOLUTE 0.01 10/3/uL (0.0-0.16); EOSINOPHILS 2.3 %; EOSINOPHILS ABSOLUTE 0.07 10/3/uL (0.0-0.53); HEMATOCRIT 35.3 % (36.0-48.0); HEMOGLOBIN 10.7 g/dL (12.0-16.0); IMMATURE GRANULOCYTES 0.3 %; IMMATURE GRANULOCYTES ABSOLUTE 0.01 10/3/uL (0.0-0.11); LYMPHOCYTES 23.9 %; LYMPHOCYTES ABSOLUTE 0.73 10/3/uL (0.67-4.30); MEAN CORPUS HGB CONC 30.3 g/dL (32.0-36.0); MEAN CORPUSCULAR HEMOGLOB 28.3 pg (26.0-34.0); MEAN CORPUSCULAR VOLUME 93.4 fL (80-100); MEAN PLATELET VOLUME 10.7 fL (9.2-13.0); MONOCYTES 9.2 %; MONOCYTES ABSOLUTE 0.28 10/3/uL (0.21-1.20); NEUTROPHILS ABSOLUTE 1.95 10/3/uL (2.02-8.40); PLATELET COUNT 56 10/3/uL (150-400); RBC DISTRIBUTION WIDTH 16.5 % (12.0-16.0); RED CELL COUNT 3.78 10/6/uL (4.0-5.6); WHITE BLOOD CELLS 3.1 10/3/uL (4.5-10.5)
[2017-02-23 05:50] LABS: MANUAL DIFF NO %
[2017-02-23 06:07] LABS: ALBUMIN 2.4 G/DL (3.5-5.0); BUN (BLOOD UREA NITROGEN) 44 MG/DL (6-23); CALCIUM, SERUM 8.5 MG/DL (8.5-10.4); CHLORIDE, SERUM 109 MMOL/L (96-112); CO2 (CARBON DIOXIDE) 24 MMOL/L (24-34); CREATININE 0.87 MG/DL (0.55-1.02); GFR AFRICAN AMERICAN 81 ML/MIN (>=60); GFR NON AFRICAN AMERICAN 70 ML/MIN (>=60); GLUCOSE, SERUM 216 MG/DL (60-99); PHOSPHORUS, SERUM 2.6 MG/DL (2.5-4.5); POTASSIUM, SERUM 4.6 MMOL/L (3.5-5.3); SODIUM, SERUM 140 MMOL/L (135-148)
[2017-02-23 06:28] LABS: PLATELET ESTIMATE DEC (ADEQUATE); RBC MORPHOLOGY NORM (NORMAL)
[2017-04-13] MEDS ORDERED: ROXICODONE15 MG PO (19:31)
[2017-04-13] MEDS ORDERED: PRILOSEC40 MG PO (19:32)
[2017-04-13] MEDS ORDERED: CIP2 PO (19:32)
[2017-04-13] MEDS ORDERED: CARTIA XT180 MG/24 PO (19:36)
[2017-04-13] MEDS ORDERED: INCRUSE ELLI62.5 MCG INH (19:37)
[2017-04-13] MEDS ORDERED: BREO ELLIPTA 21 EACH INH (19:37)
[2017-04-13] MEDS ORDERED: DEMA100 PO (19:37)
[2017-04-13] MEDS ORDERED: HUMALOG SC ×3 (19:38→19:39)
[2017-04-13] MEDS ORDERED: DUONEB INH (19:38)
[2017-04-13] MEDS ORDERED: SYN125 PO (19:38)
[2017-04-13] MEDS ORDERED: Z100 PO (19:39)
[2017-04-13] MEDS ORDERED: AMIT50 PO (19:39)
[2017-04-13] MEDS ORDERED: SPIRO25 PO (19:40)
[2017-04-13] MEDS ORDERED: PRAVAC PO (19:40)
[2017-04-13] MEDS ORDERED: NEUR600 PO (19:40)
[2017-04-13] MEDS ORDERED: COMBIVENT RESPIM4 GM INH (19:41)
[2017-04-13] MEDS ORDERED: VITD PO (19:41)
[2017-04-13] MEDS ORDERED: REG5 PO (19:42)
[2017-04-13] MEDS ORDERED: LANTUS SC (19:42)
[2017-04-13] MEDS ORDERED: MIRALAX POWDER1 PKT PO (19:43)
[2017-04-13] MEDS ORDERED: ASAB PO (19:43)
[2017-04-13] MEDS ORDERED: BL FLAX SEED1000 MG PO (19:43)
[2017-04-13] MEDS ORDERED: CO Q-10100 MG PO (19:44)
[2017-04-13] MEDS ORDERED: PROBIOTIC PO (19:44)
[2017-04-13] MEDS ORDERED: PRESERVISION A1 EAC1 PO (19:44)
[2017-04-13] MEDS ORDERED: CRANBERRY EXTRACT PO (19:45)
[2017-04-13] MEDS ORDERED: ACET500CAP PO (19:45)
[2017-04-13] MEDS ORDERED: PROCRIT INJECTION IM (19:46)
[2017-05-13] MEDS ORDERED: PLAVIX PO (19:29)
[2017-05-13] MEDS ORDERED: CIP2 PO (19:29)
[2017-05-13] MEDS ORDERED: DUONEB INH ×2 (19:29→19:33)
[2017-05-13] MEDS ORDERED: CARTIA XT180 MG/24 PO (19:29)
[2017-05-13] MEDS ORDERED: TOPAMAX25 PO (19:29)
[2017-05-13] MEDS ORDERED: CO Q-10100 MG PO (19:30)
[2017-05-13] MEDS ORDERED: CRANBERRY SUPPLEMENT PO (19:30)
[2017-05-13] MEDS ORDERED: ASAB PO (19:31)
[2017-05-13] MEDS ORDERED: MIRALAX POWDER1 PKT PO (19:31)
[2017-05-13] MEDS ORDERED: PRESERVISION A1 EAC1 PO (19:31)
[2017-05-13] MEDS ORDERED: PROBIOTIC PO (19:31)
[2017-05-13] MEDS ORDERED: FLAXSEED OIL1000 MG PO (19:31)
[2017-05-13] MEDS ORDERED: HUMALOG SC ×3 (19:32)
[2017-05-13] MEDS ORDERED: COMBIVENT RESPIM4 GM INH (19:33)
[2017-05-13] MEDS ORDERED: LANTUS SC (19:33)
[2017-05-13] MEDS ORDERED: INCRUSE ELLI62.5 MCG INH (19:33)
[2017-05-13] MEDS ORDERED: BREO ELLIPTA INH (19:33)
[2017-05-13] MEDS ORDERED: VITD PO (19:34)
[2017-05-13] MEDS ORDERED: PRAVAC PO (19:34)
[2017-05-13] MEDS ORDERED: SPIRO25 PO (19:34)
[2017-05-13] MEDS ORDERED: PRILOSEC40 MG PO (19:34)
[2017-05-13] MEDS ORDERED: DEMA100 PO (19:35)
[2017-05-13] MEDS ORDERED: AMIT50 PO (19:35)
[2017-05-13] MEDS ORDERED: NEUR600 PO (19:35)
[2017-05-13] MEDS ORDERED: SYN125 PO (19:35)
[2017-05-13] MEDS ORDERED: REG5 PO (19:35)
[2017-05-13] MEDS ORDERED: Z100 PO (19:36)
[2017-05-13] MEDS ORDERED: ROXICODONE15 MG PO (19:36)
[2017-05-16] MEDS ORDERED: LEVAQUIN750 MG PO (09:43)
== END 2017-02-23 15:36 | disposition home or self-care (01) | DRG 683 ==
LOC: ER 23:50 → 2SO 02-19 03:24
PROVIDERS: Family Medicine; Hospitalist; Internal Medicine; Nurse Practitioner; Student in an Organized Health Care Education/Training Program
DX: N17.9 Acute kidney failure, unspecified (principal); D61.818 Other pancytopenia; E11.22 Type 2 diabetes mellitus with diabetic chronic kidney disease; E11.42 Type 2 diabetes mellitus with diabetic polyneuropathy; R16.1 Splenomegaly, not elsewhere classified; E87.5 Hyperkalemia; Z99.81 Dependence on supplemental oxygen; R19.7 Diarrhea, unspecified; J02.9 Acute pharyngitis, unspecified; J40 Bronchitis, not specified as acute or chronic; G47.33 Obstructive sleep apnea (adult) (pediatric); J44.9 Chronic obstructive pulmonary disease, unspecified; N18.3 Chronic kidney disease, stage 3 (moderate); K21.9 Gastro-esophageal reflux disease without esophagitis; E03.9 Hypothyroidism, unspecified; M10.9 Gout, unspecified; I25.10 Atherosclerotic heart disease of native coronary artery without angina pectoris; W19.XXXA Unspecified fall, initial encounter; K59.00 Constipation, unspecified; I25.2 Old myocardial infarction; Z95.5 Presence of coronary angioplasty implant and graft; Z86.73 Personal history of transient ischemic attack (TIA), and cerebral infarction without residual deficits; Z86.14 Personal history of Methicillin resistant Staphylococcus aureus infection; Z86.010 Personal history of colon polyps; Z91.19 Patient's noncompliance with other medical treatment and regimen; Z87.11 Personal history of peptic ulcer disease; Z98.890 Other specified postprocedural states; Z87.891 Personal history of nicotine dependence
CPT/HCPCS: 71010; 71020; 71250; 74000; 74176; 80048; 80053; 80069; 81001; 82550; 82962; 83036; 83735; 84132; 84439; 84443; 84484; 85025; 85610; 85730; 87070; 87880; 93005; 94640; 94668; 97110-GP; 97116-GP; 97161-GP; 97166-GO; 97535-GO; 99285; A9270-GY; G8978-CJ-GP; G8979-CH-GP; G8987-CJ-GO; G8988-CI-GO; J0360; J2405; Q9967